=== PATIENT | male | born 1980 | race Caucasian/White ===

== ENCOUNTER 2019-04-23 19:24 | Inpatient (IN) ==
[2019-04-23] MEDS ORDERED: TORADOL IV ONE (20:40)
[2019-04-23] MEDS ORDERED: ATIVAN IV ONE ×3 (20:40→22:43)
[2019-04-23] MEDS ORDERED: NS 1,000 ML IV ONE ×2 (20:40→23:05)
[2019-04-23] MEDS ORDERED: ZOFRAN IV ONE (20:40)
[2019-04-23 21:07] LABS: BASO# 0.01 X1000 (0.0-0.2); BASO% 0.1 % (0.0-0.8); HEMATOCRIT 44.5 % (42.0-52.0); HEMOGLOBIN 15.5 g/dL (14.0-18.0); LYMPH# 0.81 X1000 (1.2-3.4); LYMPH% 6.2 % (20.5-51.1); MCH 33.4 PG (27-31); MCHC 34.8 g/dL (33-37); MCV 95.9 FL (81-99); MONO# 0.59 X1000 (0.11-0.59); MONO% 4.5 % (1.7-9.3); MPV 11.9 FL (7.4-10.4); NEUT# 11.71 X1000 (1.4-6.5); NEUT% 89.2 % (42.2-75.2); PLT 81 X1000 (130-400); RBC 4.64 XMIL (4.7-6.1); RDW 16.3 % (11.5-14.5); WBC 13.12 X1000 (4.8-10.8)
[2019-04-23 21:28] LABS: AGAP 25; ALB/GLOB RATIO 1.3; ALBUMIN 4.7 g/dL (3.5-5.0); ALKALINE PHOSPHATASE 103 U/L (32-122); BUN 10 mg/dL (8-22); CALCIUM 9.7 mg/dL (8.8-10.2); CHLORIDE 90 mmol/L (98-107); COSMO 274; CREATININE 0.7 mg/dL (0.7-1.2); ESTIMATED GFR > 60; GLUCOSE 155 mg/dL (70-104); GOT 161 U/L (10-34); GPT 128 U/L (10-44); POTASSIUM 3.6 mmol/L (3.5-5.1); SODIUM 136 mmol/L (136-145); TCO2 21 mmol/L (25-35); TOTAL BILIRUBIN 1.87 mg/dL (0.20-1.00); TOTAL PROTEIN 8.4 g/dL (6.3-8.3)
[2019-04-23] MEDS ORDERED: PHENOBARBITAL IV ONE (22:43)
[2019-04-23] MEDS ORDERED: CATAPRES PO ONE (23:04)
[2019-04-24] MEDS ORDERED: THIAMINE 100 MG in NS 50 ML IV ONE (00:11)
[2019-04-24] MEDS ORDERED: TYLENOL PO PRN (00:11)
[2019-04-24] MEDS ORDERED: SODIUM CHLORIDE 0.9% INJ ONE (00:11)
[2019-04-24] MEDS ORDERED: ZOFRAN IV PRN (00:11)
[2019-04-24] MEDS ORDERED: PROTONIX IV ONE (00:11)
[2019-04-24] MEDS ORDERED: M.V.I.-12 10 ML, FOLIC ACID 1 MG, MAGNESIUM SULFATE 1 GM, THIAMINE 100 MG in NS 1,000 ML IV ONE (00:11)
[2019-04-24] MEDS: LOVENOX SUBQ SCH (00:49)
[2019-04-24] MEDS: POTASSIUM CHLORIDE 10 MEQ in NS 1,000 ML IV SCH ×2 (01:26→07:04)
[2019-04-24] MEDS ORDERED: CATAPRES PO ONE (02:13)
[2019-04-24] MEDS: ATIVAN IV PRN ×10 (03:07→22:15)
[2019-04-24 05:08] LABS: BASO# 0.01 X1000 (0.0-0.2); BASO% 0.1 % (0.0-0.8); HEMATOCRIT 40.9 % (42.0-52.0); HEMOGLOBIN 13.9 g/dL (14.0-18.0); LYMPH# 1.35 X1000 (1.2-3.4); LYMPH% 15.8 % (20.5-51.1); MCH 32.4 PG (27-31); MCV 95.3 FL (81-99); MONO# 0.51 X1000 (0.11-0.59); MPV 11.7 FL (7.4-10.4); NEUT# 6.67 X1000 (1.4-6.5); NEUT% 78.1 % (42.2-75.2); PLT 57 X1000 (130-400); RBC 4.29 XMIL (4.7-6.1); RDW 15.9 % (11.5-14.5); WBC 8.54 X1000 (4.8-10.8)
[2019-04-24 05:14] LABS: AGAP 13; ALB/GLOB RATIO 1.3; ALBUMIN 3.7 g/dL (3.5-5.0); ALKALINE PHOSPHATASE 80 U/L (32-122); BUN 8 mg/dL (8-22); CALCIUM 7.8 mg/dL (8.8-10.2); CHLORIDE 95 mmol/L (98-107); COSMO 262; CREATININE 0.6 mg/dL (0.7-1.2); ESTIMATED GFR > 60; GLUCOSE 88 mg/dL (70-104); GOT 97 U/L (10-34); GPT 87 U/L (10-44); MAGNESIUM 1.8 mg/dL (1.5-2.7); POTASSIUM 3.3 mmol/L (3.5-5.1); SODIUM 132 mmol/L (136-145); TCO2 24 mmol/L (25-35); TOTAL BILIRUBIN 1.68 mg/dL (0.20-1.00); TOTAL PROTEIN 6.6 g/dL (6.3-8.3)
[2019-04-24] MEDS ORDERED: CATAPRES-TTS-1 TD SCH (06:30)
[2019-04-24] MEDS: POTASSIUM CHLORIDE 20 MEQ/SWI 20 MEQ/100 ML IVPB IV SCH ×2 (11:12→12:53)
[2019-04-24] MEDS: NS 1,000 ML IV SCH ×2 (11:12→21:25)
[2019-04-24] MEDS: POTASSIUM CHLORIDE 20 MEQ, MAGNESIUM SULFATE 2 GM, THIAMINE 100 MG, FOLIC ACID 1 MG, M.... IV SCH ×6 (11:52)
[2019-04-24] MEDS ORDERED: ROBAXIN PO PRN (11:58)
[2019-04-24] MEDS ORDERED: ATARAX PO PRN (11:58)
[2019-04-24] MEDS ORDERED: BENTYL PO PRN (11:58)
[2019-04-24] MEDS ORDERED: PRILOSEC PO ONE (12:01)
[2019-04-24] MEDS ORDERED: MBX SOLUTION MT PRN (12:02)
[2019-04-24] MEDS: LIBRIUM PO SCH ×2 (12:52→18:39)
[2019-04-24] MEDS: NICODERM PATCH TD PRN (14:23)
[2019-04-24] MEDS: PHENOBARBITAL IV PRN ×3 (18:14→22:14)
[2019-04-24] MEDS ORDERED: LEXAPRO PO SCH (21:00)
[2019-04-24] MEDS ORDERED: SEROQUEL PO SCH (21:00)
[2019-04-24 22:10] LABS: URINE SOURCE CATH
[2019-04-24 22:14] LABS: BILIRUBIN URINE NEGATIVE (NEGATIVE); BLOOD URINE SMALL (NEGATIVE); COLOR YELLOW; GLUCOSE URINE NEGATIVE (NEGATIVE); KETONE URINE NEGATIVE (NEGATIVE); LEUKOCYTES URINE NEGATIVE (NEGATIVE); NITRITE URINE NEGATIVE (NEGATIVE); PH URINE 7.5; PROTEIN URINE NEGATIVE (NEGATIVE); SP GRAVITY URINE 1.006; TURBIDITY URINE CLEAR (CLEAR); UROBILINOGEN URINE 2 mg/dL (NORMAL)
[2019-04-24 22:15] LABS: UR EPITHELIAL CELLS <10 /HPF (<10); URINE BACTERIA NEGATIVE /HPF; URINE WBC <10 /HPF (<10)
[2019-04-24] MEDS ORDERED: HALDOL IM ONE (22:36)
[2019-04-24] MEDS ORDERED: ATIVAN IV ONE (22:39)
[2019-04-24] MEDS ORDERED: LOPRESSOR IV ONE (22:40)
[2019-04-25] MEDS: LIBRIUM PO SCH ×3 (00:09→11:01)
[2019-04-25] MEDS: LOVENOX SUBQ SCH (00:11)
[2019-04-25] MEDS: ATIVAN IV PRN ×4 (00:32→07:55)
[2019-04-25 06:38] LABS: BASO# 0.01 X1000 (0.0-0.2); BASO% 0.1 % (0.0-0.8); EOS# 0.05 X1000 (0.0-0.7); EOS% 0.6 % (0.0-10.0); HEMATOCRIT 44.6 % (42.0-52.0); HEMOGLOBIN 15.1 g/dL (14.0-18.0); LYMPH# 1.64 X1000 (1.2-3.4); LYMPH% 20.8 % (20.5-51.1); MCH 32.5 PG (27-31); MCHC 33.9 g/dL (33-37); MCV 95.9 FL (81-99); MONO# 0.58 X1000 (0.11-0.59); MONO% 7.4 % (1.7-9.3); MPV 11.1 FL (7.4-10.4); NEUT% 71.1 % (42.2-75.2); PLT 53 X1000 (130-400); RBC 4.65 XMIL (4.7-6.1); RDW 15.7 % (11.5-14.5); WBC 7.88 X1000 (4.8-10.8)
[2019-04-25 06:39] LABS: AGAP 16; ALB/GLOB RATIO 1.2; ALBUMIN 3.7 g/dL (3.5-5.0); ALKALINE PHOSPHATASE 81 U/L (32-122); BUN 4 mg/dL (8-22); CALCIUM 8.6 mg/dL (8.8-10.2); CHLORIDE 99 mmol/L (98-107); COSMO 268; CREATININE 0.6 mg/dL (0.7-1.2); ESTIMATED GFR > 60; GLUCOSE 75 mg/dL (70-104); GOT 81 U/L (10-34); GPT 73 U/L (10-44); MAGNESIUM 2.1 mg/dL (1.5-2.7); POTASSIUM 3.4 mmol/L (3.5-5.1); SODIUM 136 mmol/L (136-145); TCO2 21 mmol/L (25-35); TOTAL BILIRUBIN 1.67 mg/dL (0.20-1.00); TOTAL PROTEIN 6.9 g/dL (6.3-8.3)
[2019-04-25] MEDS ORDERED: PRILOSEC PO SCH (07:00)
[2019-04-25] MEDS: NS 1,000 ML IV SCH (07:36)
[2019-04-25] MEDS ORDERED: VASOTEC PO SCH (09:00)
[2019-04-25] MEDS: PHENOBARBITAL IV PRN ×4 (09:05→21:20)
[2019-04-25] MEDS ORDERED: ATIVAN IV PRN (10:15)
[2019-04-25] MEDS: ATIVAN 20 MG in NS 190 ML IV SCH ×2 (10:50→20:13)
[2019-04-25] MEDS: POTASSIUM CHLORIDE 20 MEQ, MAGNESIUM SULFATE 2 GM, THIAMINE 100 MG, FOLIC ACID 1 MG, M.... IV SCH ×6 (11:18)
--- NOTE | 2019-04-25 11:57 | PROGRESS NOTE ---
DATE: 04/25/2019 Dr. Ospina saw Mr. Jones for Neurology evaluation yesterday. There is history of alcohol- related seizures. I discussed history with today. She confirms there has not been clear documented seizure without associated alcohol withdrawal. Lab shows elevated liver enzymes. His EEG was just completed, with report pending. If EEG does not show tendency to seizure, plan will be to manage medical problems and discharge without specific medication for seizure control. Thanks for asking Neurology to see Mr. Jones. cc: MD KENDAL Montague III
[2019-04-25] MEDS ORDERED: SODIUM CHLORIDE 0.9% INJ ONE (12:29)
[2019-04-25] MEDS: PROTONIX IV SCH (13:21)
[2019-04-25] MEDS: HALDOL IV PRN ×3 (13:49→23:08)
[2019-04-25] MEDS: NICODERM PATCH TD PRN (13:50)
--- NOTE | 2019-04-25 14:19 | PROGRESS NOTE ---
DATE: 04/25/2019 SUBJECTIVE: He is much more agitated today. He is very overall confused, disoriented. He has not had any seizure activity, but he is completely disoriented despite being placed on Librium. He is tachycardic. He is hypertensive. In any case, we ended up having to put him on an Ativan drip just to get his heart rate and blood pressure down. OBJECTIVE: Heart rate is currently 105, blood pressure 158/112, respiratory rate of 18, temperature 97.9 degrees, 100% on room air.Cardiovascular: Regular rate and rhythm. Pulmonary: Bilateral breath sounds, clear to auscultation. GI: Soft, nontender. Neurologic: Nonfocal. He does track but he is obviously hallucinating. He is not talking in complete sentences. LABORATORY DATA: White count 7, hemoglobin and hematocrit 15 and 44, platelets have dropped to 53,000, potassium is 3.4, T bilirubin 1.6, AST and ALT of 81 and 73. PROBLEM LIST: 1. Alcohol withdrawal syndrome. He still not doing much better today, which you know this is still within the first 72 hours of his withdrawal. He is on an Ativan drip. We have him on phenobarbital. I have added Haldol. Hopefully, that will work on getting him better. 2. Alcoholic hepatitis. We will continue to monitor closely. EEG is pending. He is going to be on Ativan. Neurology feels that he does not have a primary epileptic disorder because his seizures are almost always associated with withdrawal. Appreciate their input. We are just going to watch him. No seizure medication at this time except for benzodiazepines but again that is really just for his alcohol withdrawal. Thrombocytopenia has progressed. I am going to stop his enoxaparin. I do not think he has heparin-induced thrombocytopenia because he was thrombocytopenic to begin with. This is likely related to chronic alcohol use. We will continue banana bag and monitor. At this point he is unable take p.o. We will get a right upper quadrant ultrasound. Hepatitis panel is pending and continue to monitor. cc: Ramirez Chester MD
[2019-04-25] MEDS: LABETALOL IV PRN (14:35)
[2019-04-26] MEDS: NS 1,000 ML IV SCH ×3 (03:10→18:05)
[2019-04-26] MEDS: HALDOL IV PRN ×2 (03:10→07:15)
[2019-04-26] MEDS: LABETALOL IV PRN ×3 (03:33→17:21)
[2019-04-26] MEDS: PHENOBARBITAL IV PRN ×2 (05:23→18:05)
[2019-04-26 05:46] LABS: BASO# 0.01 X1000 (0.0-0.2); BASO% 0.1 % (0.0-0.8); EOS# 0.13 X1000 (0.0-0.7); EOS% 1.7 % (0.0-10.0); HEMATOCRIT 42.4 % (42.0-52.0); HEMOGLOBIN 14.7 g/dL (14.0-18.0); IMM GRAN# 0.03 X1000 (0.0-0.04); IMM GRAN% 0.4 % (0.0-0.5); LYMPH# 1.53 X1000 (1.2-3.4); LYMPH% 19.7 % (20.5-51.1); MCHC 34.7 g/dL (33-37); MCV 95.3 FL (81-99); MONO# 0.75 X1000 (0.11-0.59); MONO% 9.6 % (1.7-9.3); MPV 10.8 FL (7.4-10.4); NEUT# 5.33 X1000 (1.4-6.5); NEUT% 68.5 % (42.2-75.2); PLT 65 X1000 (130-400); RBC 4.45 XMIL (4.7-6.1); RDW 15.7 % (11.5-14.5); WBC 7.78 X1000 (4.8-10.8)
[2019-04-26 06:18] LABS: AGAP 18; ALB/GLOB RATIO 1.1; ALBUMIN 3.4 g/dL (3.5-5.0); ALKALINE PHOSPHATASE 76 U/L (32-122); BUN 5 mg/dL (8-22); CALCIUM 8.3 mg/dL (8.8-10.2); CHLORIDE 99 mmol/L (98-107); COSMO 269; CREATININE 0.6 mg/dL (0.7-1.2); ESTIMATED GFR > 60; GLUCOSE 89 mg/dL (70-104); GOT 56 U/L (10-34); GPT 61 U/L (10-44); MAGNESIUM 1.9 mg/dL (1.5-2.7); PHOSPHORUS 3.5 mg/dL (2.7-4.5); POTASSIUM 3.4 mmol/L (3.5-5.1); SODIUM 136 mmol/L (136-145); TCO2 19 mmol/L (25-35); TOTAL BILIRUBIN 1.34 mg/dL (0.20-1.00); TOTAL PROTEIN 6.6 g/dL (6.3-8.3)
[2019-04-26] MEDS ORDERED: SODIUM CHLORIDE 0.9% 10 ML ONE (11:15)
[2019-04-26] MEDS: POTASSIUM CHLORIDE 20 MEQ, MAGNESIUM SULFATE 2 GM, THIAMINE 100 MG, FOLIC ACID 1 MG, M.... IV SCH ×6 (11:25)
[2019-04-26] MEDS ORDERED: SODIUM CHLORIDE 0.9% INJ PRN (11:45)
[2019-04-26] MEDS: PROTONIX IV SCH (11:47)
[2019-04-26] MEDS: LOPRESSOR IV SCH ×3 (11:57→23:51)
--- NOTE | 2019-04-26 12:12 | PROGRESS NOTE ---
DATE: 04/26/2019 SUBJECTIVE: Patient has no major complaints. OBJECTIVE: Blood pressure 148/103, heart rate 83, respiratory rate of 20, temperature was 99 degrees. Cardiovascular: Regular rate and rhythm. Pulmonary: Bilateral breath sounds clear to auscultation. GI: Soft, nontender, nondistended. Bowel sounds were positive. He is still very agitated and sedated on the Ativan drip. Laboratory Data: White count is 7, hemoglobin and hematocrit 14 and 42, platelets of 65,000. Potassium of 3.4. Total bilirubin 1.34, AST and ALT of 56 and 61 which is an improvement. It is just kind of a slow steady improvement. PROBLEM LIST: 1. Alcohol withdrawal syndrome, fairly severe. He is still very agitated. He is on an Ativan drip which will tonight and hopefully we can transition him to Librium. Otherwise, we may need to maintain the Ativan drip. He is on phenobarbital. He is on Haldol. 2. Mild alcoholic hepatitis. He has steatohepatitis, which is most likely alcoholic. Discussed that there is no evidence of cirrhosis at this time but continued alcohol may be an issue so we will continue to monitor. 3. Thrombocytopenia is improving. We will continue to monitor. Avoid heparin- type products or other things that will potentially reduce it. I think he may have some sleep apnea so we will continue to monitor. He will likely need outpatient sleep study. 4. Seizure disorder. He has not had any more episodes. Neurology feels this is all related to alcohol withdrawal, which is the most accurate issue. In any case, we will avoid. DISPOSITION: He is still on an Ativan drip so we will need to continue to monitor in the ICU and follow closely. cc: Ramirez Chester MD [facility] CENTERWallace
[2019-04-26 12:49] LABS: HEPATITIS PROFILE ACUTE SEE COMMENTS
[2019-04-26] MEDS: NICODERM PATCH TD PRN (12:57)
[2019-04-26] MEDS: ATIVAN 20 MG in NS 190 ML IV SCH (17:43)
[2019-04-27] MEDS: PHENOBARBITAL IV PRN ×3 (01:03→17:59)
[2019-04-27] MEDS: NS 1,000 ML IV SCH ×3 (05:24→23:27)
[2019-04-27] MEDS: LOPRESSOR IV SCH ×4 (05:24→23:27)
[2019-04-27 06:10] LABS: HEMATOCRIT 44.1 % (42.0-52.0); HEMOGLOBIN 15.5 g/dL (14.0-18.0); MCH 33.5 PG (27-31); MCHC 35.1 g/dL (33-37); MCV 95.5 FL (81-99); MPV 11.2 FL (7.4-10.4); RBC 4.62 XMIL (4.7-6.1); RDW 16.3 % (11.5-14.5); WBC 7.3 X1000 (4.8-10.8)
[2019-04-27 06:19] LABS: AGAP 19; ALB/GLOB RATIO 1.1; ALBUMIN 3.6 g/dL (3.5-5.0); ALKALINE PHOSPHATASE 85 U/L (32-122); BUN 4 mg/dL (8-22); CALCIUM 8.9 mg/dL (8.8-10.2); CHLORIDE 97 mmol/L (98-107); COSMO 268; CREATININE 0.6 mg/dL (0.7-1.2); ESTIMATED GFR > 60; GLUCOSE 90 mg/dL (70-104); GOT 52 U/L (10-34); GPT 54 U/L (10-44); POTASSIUM 3.7 mmol/L (3.5-5.1); SODIUM 136 mmol/L (136-145); TCO2 20 mmol/L (25-35); TOTAL BILIRUBIN 1.18 mg/dL (0.20-1.00)
[2019-04-27] MEDS: LABETALOL IV PRN ×2 (10:50→20:48)
--- NOTE | 2019-04-27 11:09 | PROGRESS NOTE ---
DATE: 04/27/2019 SUBJECTIVE: Patient is not able to communicate and has been sleepy because of the Ativan drip. OBJECTIVE: Vital Signs: Temperature 99.0 degrees, pulse 110 per minute, respiratory rate 28 per minute, blood pressure 139/103, pulse oximetry 100% on room air. General: The patient is drowsy and sleepy. He gets lethargic at times however. Cardiovascular: First and second heart sounds are audible with regular tachycardia. No murmurs are present. Respiratory System: Bilateral lung air entry is good without any rales or rhonchi. Gastrointestinal: Abdomen is soft and nondistended. Bowel sounds are present. DIAGNOSTIC DATA: CBC shows a platelet count of 86,000. Rest of the CBC is nondiagnostic. In comparison, his platelet count was 65,000 yesterday. Comprehensive metabolic panel showed AST of 52, ALT 54, and total bilirubin of 1.18. Rest of the comprehensive metabolic panel is nondiagnostic. IMPRESSION: 1. Alcohol withdrawal syndrome. 2. Alcohol hepatitis. 3. Seizure disorder. 4. Thrombocytopenia secondary to ETOH. PLAN: The patient will continue to receive benzodiazepine and supportive care. He is currently on phenobarbital, which will be continued for his seizure disorder. He does have elevated blood pressure at times, but mostly it is related to his agitation. I believe we will keep him here in the ICU for now. His platelet counts are also getting better. Dr. Beal from Neurology service has been consulted to assist us in taking care of this gentleman. cc: Jennifer Agrawal MD
[2019-04-27] MEDS: POTASSIUM CHLORIDE 20 MEQ, MAGNESIUM SULFATE 2 GM, THIAMINE 100 MG, FOLIC ACID 1 MG, M.... IV SCH ×6 (11:34)
[2019-04-27] MEDS: PROTONIX IV SCH (11:34)
[2019-04-27] MEDS: NICODERM PATCH TD PRN (14:56)
[2019-04-27] MEDS: HALDOL IV PRN (14:56)
[2019-04-28] MEDS: NS 1,000 ML IV SCH ×3 (04:31→22:22)
[2019-04-28] MEDS: LOPRESSOR IV SCH ×3 (05:06→17:27)
[2019-04-28 06:26] LABS: AGAP 19; ALB/GLOB RATIO 0.9; ALBUMIN 3.3 g/dL (3.5-5.0); ALKALINE PHOSPHATASE 86 U/L (32-122); BUN 5 mg/dL (8-22); CALCIUM 8.8 mg/dL (8.8-10.2); CHLORIDE 100 mmol/L (98-107); COSMO 271; CREATININE 0.6 mg/dL (0.7-1.2); ESTIMATED GFR > 60; GLUCOSE 93 mg/dL (70-104); GOT 60 U/L (10-34); GPT 49 U/L (10-44); POTASSIUM 4.3 mmol/L (3.5-5.1); SODIUM 137 mmol/L (136-145); TCO2 18 mmol/L (25-35); TOTAL BILIRUBIN 0.89 mg/dL (0.20-1.00)
[2019-04-28 06:33] LABS: HEMATOCRIT 43.8 % (42.0-52.0); HEMOGLOBIN 15.1 g/dL (14.0-18.0); MCH 32.5 PG (27-31); MCHC 34.5 g/dL (33-37); MCV 94.4 FL (81-99); MPV 9.9 FL (7.4-10.4); RBC 4.64 XMIL (4.7-6.1); RDW 16.1 % (11.5-14.5); WBC 7.19 X1000 (4.8-10.8)
[2019-04-28] MEDS: ATIVAN 20 MG in NS 190 ML IV SCH (09:19)
--- NOTE | 2019-04-28 10:15 | PROGRESS NOTE ---
DATE: 04/28/2019 SUBJECTIVE: Patient currently is somnolent. He does awaken with stimuli. The staff does note that he will open his eyes, but does not answer questions or follow commands, simply grunts, acts confused. PHYSICAL: Vital Signs: He is afebrile. Pulse from the upper 90s to 130s, respiratory 25, BP current 151/112. General: Patient is confused, disoriented. He is tachypneic. Does not follow commands nor answer questions. HEENT: Normocephalic. Neck: Supple. Cardiovascular: Tachycardic. Chest: Good air movement bilaterally. Tachypnea. Abdomen: Soft, nondistended. Extremities: Moves all extremities. ASSESSMENT: 1. Acute alcohol withdrawal syndrome. 2. Acute alcoholic hepatitis. 3. History of seizure disorder. 4. Thrombocytopenia secondary to his alcohol. He has actually improved. His platelet count is up to 118 today. 5. Metabolic acidosis. 6. Metabolic encephalopathy secondary to his alcohol withdrawal syndrome. PLAN: He currently is on Catapres 1 patch. We certainly may need to increase that if his blood pressure does not improve. He is getting Toprol IV for his tachycardia. He is currently on Ativan drip and will follow. cc: Marcelo Acosta MD
[2019-04-28] MEDS: POTASSIUM CHLORIDE 20 MEQ, MAGNESIUM SULFATE 2 GM, THIAMINE 100 MG, FOLIC ACID 1 MG, M.... IV SCH ×6 (12:21)
[2019-04-28] MEDS: PROTONIX IV SCH (13:13)
[2019-04-28] MEDS: LABETALOL IV PRN (21:11)
[2019-04-29] MEDS: LOPRESSOR IV SCH ×4 (00:47→17:25)
[2019-04-29] MEDS: PHENOBARBITAL IV PRN ×2 (00:57→06:03)
[2019-04-29] MEDS: NS 1,000 ML IV SCH ×3 (04:45→23:31)
[2019-04-29 06:43] LABS: HEMATOCRIT 43.5 % (42.0-52.0); MCH 32.5 PG (27-31); MCHC 34.5 g/dL (33-37); MCV 94.4 FL (81-99); MPV 10.7 FL (7.4-10.4); RBC 4.61 XMIL (4.7-6.1); RDW 15.6 % (11.5-14.5); WBC 6.23 X1000 (4.8-10.8)
[2019-04-29] MEDS: VASOTEC PO SCH (09:11)
[2019-04-29] MEDS: LABETALOL IV PRN (09:11)
[2019-04-29 10:49] LABS: AGAP 15; BUN 5 mg/dL (8-22); CHLORIDE 96 mmol/L (98-107); COSMO 271; CREATININE 0.6 mg/dL (0.7-1.2); ESTIMATED GFR > 60; GLUCOSE 128 mg/dL (70-104); POTASSIUM 3.3 mmol/L (3.5-5.1); SODIUM 136 mmol/L (136-145); TCO2 25 mmol/L (25-35)
[2019-04-29] MEDS: POTASSIUM CHLORIDE 20 MEQ, MAGNESIUM SULFATE 2 GM, THIAMINE 100 MG, FOLIC ACID 1 MG, M.... IV SCH ×6 (12:25)
[2019-04-29] MEDS: PROTONIX IV SCH (12:25)
--- NOTE | 2019-04-29 14:13 | PROGRESS NOTE ---
DATE: 04/29/2019 INTERVAL HISTORY: The patient is off Ativan drip as of this morning. Still a little somnolent but arousing. No tremulousness, tachycardia, or other sign of ongoing alcohol withdrawal. The patient is still mildly confused but appears improved from previous. Discussed with nursing and the saturation of 85 on room air was documented in error. When they rechecked it after adjusting his monitor, his oxygenation was fine. REVIEW OF SYSTEMS: Twelve point review of systems negative except as per interval history. LABS: WBCs 6.23, hemoglobin 15.0, hematocrit 43.5, platelets 155,000. Sodium 136, potassium 3.3, bicarb 25, BUN 5, creatinine 0.6, glucose 128. VITAL SIGNS: T-max 99.0, pulse 74, respirations 24, blood pressure 155/107, O2 saturation 95% on room air. PHYSICAL EXAMINATION: General: No acute distress. Vitals: As above. HEENT: Normocephalic, atraumatic. Moist mucous membranes. No cervical adenopathy. Cardiovascular: Regular rate and rhythm. No murmurs noted. Pulmonary: Clear to auscultation bilaterally. Abdomen: Soft, nontender, nondistended. Bowel sounds positive. Extremities: Peripheral pulses intact. No clubbing or cyanosis. Neurologic: Speech is not entirely clear but cranial nerves otherwise intact. No focal deficits identified. Psychiatric: Still a little confused but answers all orientation questions appropriately. Skin: Some chronic-appearing dermatitis around his mustache and a couple of other spots but no acute issues noted. ASSESSMENT AND PLAN: 1. Delirium tremens with seizure and hallucinations. Patient admitted after what was likely viral gastroenteritis with nausea and vomiting. He was unable to drink and ended up having seizures at home. Placed on phenobarbital and Ativan here, and has improved. No further seizures. Now off Ativan, weaned off Ativan drip as of this morning. Arousing and appears to be doing okay but we will monitor off the Ativan drip to make sure he does not have recurrent delirium tremens. If he has no further issues, we will likely move him to the floor today and possibly home tomorrow. Low suspicion for primary neurologic cause of his seizures. 2. Alcoholic hepatitis, improving, although AST and ALT remain minimally elevated on last check. Bilirubin had normalized. No need for further intervention at this time. 3. Thrombocytopenia, likely related to his alcoholism, improved. 4. Hypertension, still pretty elevated on the clonidine patch this morning. Restarted patient's home Vasotec and we will monitor.
[2019-04-29] MEDS: NICODERM PATCH TD PRN (17:45)
[2019-04-30] MEDS: LOPRESSOR IV SCH ×2 (05:56→08:23)
[2019-04-30 08:00] VITALS: BP 152/100
[2019-04-30] MEDS: VASOTEC PO SCH (08:23)
[2019-04-30] MEDS: NS 1,000 ML IV SCH (08:24)
--- NOTE | 2019-05-01 08:14 | DISCHARGE SUMMARY ---
ADMISSION DATE: 04/23/2019 DISCHARGE DATE: 04/30/2019 CONSULTANTS: Neurology Dr. Ospina. PERTINENT STUDIES: 1. CT head with no acute process. 2. CT maxillofacial, no acute process. 3. EEG essentially normal. 4. Abdominal ultrasound with fatty liver and some minimal sludge in the gallbladder without any sign of cholecystitis. 5. Initial bilirubin 1.67. Last bilirubin 0.89. 6. Hepatitis panel negative. 7. Urinalysis essentially unremarkable. 8. Initial alcohol level 20. 9. TSH low normal 0.36. 10. Folate a little low at 4.4. DISCHARGE DIAGNOSES: 1. Delirium tremens with seizure and hallucinations. 2. Alcohol abuse and withdrawal. 3. Alcoholic hepatitis. 4. Alcoholic fatty liver. 5. Thrombocytopenia. 6. Hypertension. 7. Nausea and vomiting, likely viral gastroenteritis. HOSPITAL COURSE: The patient presented initially after a couple of days of nausea and vomiting favored to be viral gastroenteritis. He had had difficulty drinking any significant amount during that time, and he is usually a pint of liquor a day person. After a couple of days of not being able to drink significant alcohol, he had 2 tonic-clonic seizures witnessed by family. EMS was called. On presentation, he was awake but confused. He was significantly tremulous. He was started on IV Ativan at that time with improvement in his tremulousness and tachycardia. He had no further seizures, but was significantly confused and intermittently agitated for several days. With Ativan and phenobarbital, this did eventually calm down. He was weaned off of both of those, and monitored and remained stable afterwards. After removing the sedating medications, the patient gradually returned to normal cognition. He was fully oriented and at his usual mental status at the time of discharge. After weaning from Ativan and phenobarbital, he did not have any further withdrawal symptoms or seizures. Neurology was involved and performed an EEG, which was essentially normal. The cause of his seizures was thought to be due to severe alcohol withdrawal/delirium tremens. The patient was strongly counseled on alcohol cessation. The patient also had some mildly elevated LFTs and bilirubin, which did trend down over the course of the hospitalization. This was thought to be alcoholic hepatitis as well as some alcoholic fatty liver, which was essentially the only problem identified on ultrasound. The patient had low platelets thought to also be due to his alcohol. They remained essentially stable. He never had any significant bleeding. The patient did not have any further nausea and vomiting after admission to the hospital. He did develop some fairly significant hypertension. He was started on clonidine patch while on the drip which was continued afterwards. He was also later restarted on a higher dose of his home Vasotec. On that, he still had some mild to moderate elevations but control was significantly improved. The patient had some minor electrolyte abnormalities, hypokalemia, low folate, and low phosphorus, which were addressed and improved on recheck. DISCHARGE VITALS: Temperature 99.2 degrees, pulse 84, respirations 20, blood pressure 152/100, and O2 saturation 97% on room air. DISCHARGE DIET: Regular. DISCHARGE MEDICATIONS: 1. Lexapro 20 mg p.o. at bedtime. 2. Seroquel 50 mg p.o. at bedtime. 3. Clonidine patch 1 every week. 4. Enalapril 20 mg p.o. daily. 5. Nicotine patch 21 mg daily as needed. FOLLOWUP AND PLAN: The patient discharging home with family. The patient to follow up with PCP. Patient strongly advised on alcohol cessation, but he is essentially detoxed at this point. Given severity of withdrawal and signs of alcoholic fatty liver, alcohol cessation was repeatedly and strongly advised. TIME SPENT: Greater than 30 minutes spent arranging discharge and counseling patient.
== END 2019-04-30 14:39 | disposition home or self-care (01) | DRG 897 ==
LOC: ED 19:24 → SUATTDRO 19:26 → ICU 04-24 00:01 → SUATTDRO 04-24 00:01 → 3N 04-29 22:22
PROVIDERS: ATTEND Internal Medicine